=== PATIENT | female | born 1985 | race African-American/Black ===

== ENCOUNTER 2020-05-25 11:21 | Outpatient (CLI) | payer OTHER, SELFPAY ==
--- NOTE | ~2020-05-25 | US_ITS ---
EXAMINATION: US OB <=14 wk fetus w TV DATE: 05/25/2020 12:23 INDICATION: Hemorrhage in early . TECHNIQUE: Real-time transabdominal and transvaginal pelvic ultrasound was performed. COMPARISON: None. FINDINGS: TRANSABDOMINAL ULTRASOUND: The uterus measures 7.5 x 5.3 x 4.4 cm. TRANSVAGINAL ULTRASOUND: There is no visible intrauterine gestational sac. There is a 10 x 11 x 18 mm hypoechoic mass with small cystic areas in the endometrial complex. The right ovary measures 2.4 x 1 .3 x 1.4 cm. The left ovary measures 2.8 x 2.2 x 2.3 cm. There is no free fluid in the pelvis. IMPRESSION: 1. Mass in the endometrial complex, likely a hematoma. Lack of a visible intrauterine gestational sa c may be normal in early . Spontaneous and ectopic are not excluded. Seri al beta-hCGs are recommended. Reviewed, dictated and finalized at location A. [facility] IMPRESSION: 1. Mass in the endometrial complex, likely a hematoma. Lack of a visible intra uterine gestational sac may be normal in early . Spontaneous and ectopic are not excluded. Serial beta-hCGs are recommended.
== END 2020-05-25 11:22 | disposition home or self-care (01) ==
PROVIDERS: PCP Internal Medicine; Visit Provider Obstetrics & Gynecology
DX: N85.00 Endometrial hyperplasia, unspecified (principal)
CPT/HCPCS: 76801; 76817

== ENCOUNTER → 2020-12-23 15:14 | Outpatient (CLI) | payer OTHER, SELFPAY ==
--- NOTE | ~2020-12-23 | US_ITS ---
US OB <=14 wk fetus w TV DATE: 12/23/2020 15:58 INDICATION: viability determination and age assessment TECHNIQUE: Real-time imaging and Doppler analysis COMPARISON: None FINDINGS: The uterus measures 9.4 centers height, 4 cm anteroposterior and 5.3 cm transverse dimensio n. A normally shaped intrauterine gestational sac is noted with surrounding hyperechogenicity consistent with normal decidual reaction. Yolk sac is identified. Approximately 3.9 x 7 x 2.5 mm fluid collection is noted subjacent to the sacrum consistent with impl antation bleed or small subchorionic hematoma. The pole is not definitively localized. The ovaries and adnexal areas are unremarkable. No significant free fluid is identified. IMPRESSION: Small normally shaped intrauterine gestational sac suggesting very early intrauterine ges tation Follow-up ultrasound imaging in one to 2 weeks would be helpful for more definitive assessment of ges tational age and viability. Reviewed, dictated and finalized at [facility]. Reviewed, dictated and finalized at location A. IMPRESSION: Small normally shaped intrauterine gestational sac suggesting very early intrauterine gestation Follow-up ultrasound imaging in one to 2 weeks would be helpful for more defini tive assessment of gestational age and viability.
== END ==
PROVIDERS: Visit Provider Obstetrics & Gynecology
DX: Z36.9 Encounter for antenatal screening, unspecified (principal); Z3A.00 Weeks of gestation of pregnancy not specified
CPT/HCPCS: 76801; 76817

== ENCOUNTER 2020-12-23 15:15 | Outpatient (CLI) | payer OTHER, SELFPAY ==
--- NOTE | ~2020-12-23 | US_ITS ---
US renal BI DATE: 12/23/2020 16:19 INDICATION: Left flank pain, microscopic hematuria TECHNIQUE: Real-time imaging of the kidneys and urinary bladder COMPARISON: None FINDINGS: The kidneys measure approximately 10 cm length. No renal mass lesion or hydronephrosis is d etected. The urinary bladder is unremarkable. IMPRESSION: No significant abnormality Reviewed, dictated and finalized at [facility]. Reviewed, dictated and finalized at location A. IMPRESSION: No significant abnormality
== END 2020-12-23 15:16 ==
LOC: MICIMG 15:16
PROVIDERS: PCP Internal Medicine; Visit Provider Internal Medicine
DX: R31.21 Asymptomatic microscopic hematuria (principal)
CPT/HCPCS: 76775

== ENCOUNTER → 2021-01-01 09:50 | Outpatient (CLI) | payer OTHER, SELFPAY ==
--- NOTE | ~2021-01-01 | US_ITS ---
EXAMINATION: US OB <=14 wk fetus w TV DATE: 01/01/2021 10:36 INDICATION: Uncertain dates. viability. TECHNIQUE: Real-time transabdominal and transvaginal pelvic ultrasound was performed. COMPARISON: Ultrasound 12/23/2020 FINDINGS: TRANSABDOMINAL ULTRASOUND: The uterus measures 9.5 x 5.0 x 6.5 cm. TRANSVAGINAL ULTRASOUND: There is an intrauterine gestational sac. A yolk sac is identified. The fet al crown rump length measures 7 mm, which correlates with an estimated gestational age of 6 weeks and 4 day(s) (+/-) 4 day(s). heart motion is identified measuring 137 beats per minute (bpm) by M- mode Doppler. The ovaries are not visualized. There is trace free fluid in the pelvis. IMPRESSION: 1. Single living intrauterine gestation with estimated date of delivery of 08/23/2021. Reviewed, dictated and finalized at location A. IMPRESSION: 1. Single living intrauterine gestation with estimated date of delivery of 07/30.
== END ==
PROVIDERS: Visit Provider Obstetrics & Gynecology
DX: Z34.90 Encounter for supervision of normal pregnancy, unspecified, unspecified trimester (principal)
CPT/HCPCS: 76801; 76817

== ENCOUNTER 2021-01-13 12:59 | Outpatient (CLI) | payer OTHER, SELFPAY ==
--- NOTE | ~2021-01-13 | US_ITS ---
EXAMINATION: US OB <=14 wk fetus w TV EXAM DATE: 01/13/2021 13:45 INDICATION: O20.0 - Threatened . Vaginal bleeding and cramping. 1st trimester. TECHNIQUE: Pelvic obstetrical transabdominal sonogram was performed by a technologist. There are mu ltiple grayscale and Doppler images available for interpretation. Comparison is made to prior examina tion from 01/01/2021. FINDINGS: There is early live intrauterine gestation, 1.8 cm crown-rump length corresponding to estim ated gestational age 8 weeks 2 days, MJ 08/23/2021. heart rate was confirmed at 167 bpm. Yolk s ac was identified. No subchorionic hematoma demonstrated. Focal uterine region was measured at 3 cm, possible fibroid. IMPRESSION: 1. Early live intrauterine gestation, age by ultrasound 8 weeks 2 days. Reviewed, dictated and finalized at location B.
== END 2021-01-13 13:00 | disposition home or self-care (01) ==
LOC: ANHIMG 13:01
PROVIDERS: PCP Internal Medicine; Visit Provider Obstetrics & Gynecology
DX: O20.0 Threatened abortion (principal); Z3A.08 8 weeks gestation of pregnancy
CPT/HCPCS: 76801; 76817

== ENCOUNTER 2021-02-28 05:36 | Emergency (ER) | payer OTHER, SELFPAY ==
--- NOTE | ~2021-02-28 | US_ITS ---
EXAMINATION: US OB follow up DATE: 02/28/2021 07:28 INDICATION: Vaginal bleeding during TECHNIQUE: Real-time ultrasound of the pelvis was performed. The interpreting radiologist was not pre sent for the study. COMPARISON: 01/13/2021 FINDINGS: There is a single living fetus in breech presentation. The placenta is right posterior. heart rate is 155 beats per minute (bpm). The amniotic fluid volume appears subjectively normal. The following biometric data were obtained: BPD: 9.1 cm -> 15 weeks 0 days Head circumference: 2.8 cm -> 14 weeks 6 days Abdominal circumference: 11.2 cm -> 15 weeks 3 days Femur length: 1.9 cm -> 15 weeks 5 days These measurements are concordant. Head circumference to abdominal circumference ratio: 1.22 (normal range 1.05-1.38). Estimated weight: 126 g (+/-) 19 g or 4 oz. (+/-) 1 oz. IMPRESSION: 1. Single living fetus in breech presentation with heart rate of 155 bpm. 2. Estimated weight is 73rd percentile by Hadlock criteria when 08/22/2021 is used as the estima phillip date of delivery (MJ). Please correlate with clinical information or earlier ultrasounds for mos t accurate MJ. Reviewed, dictated and finalized at location A. IMPRESSION: 1. Single living fetus in breech presentation with heart rate of 155 bpm. 2. Estimated weight is 73rd percentile by Hadlock criteria when 08/22/2021 is used as the estimated date of delivery (MJ). Please correlate with clinica l information or earlier ultrasounds for most accurate MJ.
[2021-02-28 05:41] VITALS: BP 113/74; PULSE 72; RESP 18; TEMP 36.1; O2SAT 100
--- NOTE | 2021-02-28 06:01 | ED.FEMALEGU ---
HPI - Female Genitourinary General Chief complaint: OB/Uterine Contractions <Drake Solo MD - Last Filed: 03/02/21 11:24> Stated complaint: cramping, 15 weeks <Drake Solo MD - Last Filed: 03/02/21 11:24> Time Seen by Provider: 02/28/21 05:53 <Drake Solo MD - Last Filed: 03/02/21 11:24> History of Present Illness HPI Narrative: Patient is a 35-year-old female who is 15 weeks that presents ER with vaginal spotting. Began this morning. Reports she has had increased abdominal cramping over the last week. No loss of consciousness. No fevers or chills or sweats. She takes Lovenox due to antiphospholipid antibody. She is a . <Drake Solo MD - Last Filed: 03/02/21 11:24> Related Data Home medications: Home Medications Medication Instructions Recorded Confirmed docosahexaenoic acid 200 mg capsule mg PO 05/25/20 02/28/21 aspirin 81 mg tablet,delayed 81 mg PO BID tablet 02/16/21 02/28/21 release enoxaparin 40 mg/0.4 mL 40 mg SUBCUT DAILY 02/16/21 02/28/21 subcutaneous syringe <Drake Solo MD - Last Filed: 03/02/21 11:24> Allergies/Adverse reactions: Allergies Allergy/AdvReac Type Severity Reaction Status Date / Time Fish Containing Products Allergy Anaphylaxis Verified 02/28/21 11:13 rizatriptan Allergy chest pain Verified 02/28/21 11:13 sumatriptan Allergy chest pain Verified 02/28/21 11:13 <Drake Solo MD - Last Filed: 03/02/21 11:24> Review of Systems Review of Systems: All systems reviewed & are unremarkable except as noted in HPI and below <Drake Solo MD - Last Filed: 03/02/21 11:24> Gastrointestinal: Gastrointestinal: Reports abdominal pain, Denies diarrhea, Denies nausea and Denies vomiting <Drake Solo MD - Last Filed: 03/02/21 11:24> Genitourinary: Genitourinary: Reports abnormal vaginal bleeding, Denies nocturia, Denies dysuria and Denies vaginal discharge <Drake Solo MD - Last Filed: 03/02/21 11:24> Musculoskeletal: Musculoskeletal: Denies back pain and Denies muscle cramps <Drake Solo MD - Last Filed: 03/02/21 11:24> PMFSH Past Medical History Medical History: Medical History Acid reflux Anxiety Arthritis, rheumatic, acute or subacute Asthma Depression Elective x 3 HSV (herpes simplex virus) infection Interstitial cystitis Migraines Trigeminal neuralgia Vaginal delivery Vasculitis <Drake Solo MD - Last Filed: 03/02/21 11:24> Surgical History Surgical History: Surgical History History of cystoscopy History of dilation and curettage x 3 [place] teeth removed <Drake Solo MD - Last Filed: 03/02/21 11:24> Family History Family History: Family History Grandparent Diabetes mellitus Hypertension High cholesterol Cerebrovascular accident Mother Hypertension Father Hypertension Other Breast cancer <rDake Solo MD - Last Filed: 03/02/21 11:24> Social History Social History: Social History Smoking status: Never smoker Alcohol intake: current Drinks per week: 1 Substance use: never <Drake Solo MD - Last Filed: 03/02/21 11:24> Exam Narrative: GENERAL: Well-appearing, well-nourished, and in no acute distress. HEAD: Normocephalic, atraumatic. CHEST: Clear to auscultation. No respiratory distress. HEART: Regular rate and rhythm. Normal peripheral pulses. ABDOMEN: Soft, nontender, nondistended. : Normal external genitalia, scant dark blood within the vagina, cervix normal appearing and closed. No discharge. EXTREMITIES: Normal range of motion. No edema. SKIN: Warm, dry, no rash. NEURO: Alert and oriented x3. PSYCH: Normal mood and affect. <
--- NOTE | 2021-02-28 06:46 | PC.NURSE ---
Charge nurse in room attempting to draw blood.
--- NOTE | 2021-02-28 06:48 | PC.NURSE ---
Pt reports she is 15 weeks . . c/o vaginal bleeding - pink tinged tissue when wiping after urinating. also c/o pelvic cramping that began 1 week ago when pt started new job that includes more walking than previous job. a/o x 4. skin nwd. resps even/nonlabored. pelvic exam done by dr. mora with this RN as client success director. no swabs ordered/obtained. awaiting US.
[2021-02-28 07:40] LABS: Basophils Percent Auto 0.1 % (0.2-1.2); Eosinophils Absolute Auto 0.1 K/mm3 (0-0.3); Eosinophils Percent Auto 1.4 % (0-4.4); Hematocrit 34.8 % (37.0-47.0); Hemoglobin 10.9 g/dL (12.0-15.0); Immature Granulocyte Absolute 0.04 K/mm3 (0.00-0.031); Immature Granulocyte Percent A 0.4 % (0-0.5); Lymphocytes Absolute Auto 1.93 K/mm3 (0.9-3.2); Mean Corpuscular HGB Conc 31.3 g/dl (32-36); Mean Corpuscular Volume 86.1 fl (80-100); Mean Platelet Volume 9.9 fl (7.4-10.4); Monocytes Absolute Auto 0.7 K/mm3 (0.1-0.6); Monocytes Percent Auto 6.7 % (2.6-8.5); Neutrophils Absolute Auto 7.4 K/mm3 (1.3-6.7); Neutrophils Percent Auto 72.4 % (45.5-73.1); Platelet Count Result 435 k/mm3 (150-375); Red Blood Count 4.04 M/mm3 (4.2-5.4); Red Cell Distribution Width 14.6 % (11.5-14.5); White Blood Count 10.2 K/mm3 (4.5-10.0)
[2021-02-28 08:02] LABS: Alanine Aminotransferase 22 U/L (4-35); Albumin Level 3.6 g/dL (3.5-5.1); Alkaline Phosphatase 74 U/L (38-126); Anion Gap 9 mmol/L (8-16); Aspartate Amino Transferase 23 U/L (14-36); Bilirubin,Total 0.1 mg/dL (0.2-1.3); Blood Urea Nitrogen 9 mg/dL (7-17); Calcium 9.2 mg/dL (8.4-10.2); Carbon Dioxide 22 mmol/L (22-30); Chloride 106 mmol/L (98-107); Estimated CRCL calculation 155 ml/min; Estimated Glomerular Filt Rate > 60; Glucose 83 mg/dL (65-110); Potassium 4.1 mmol/L (3.4-5.0); Sodium 137 mmol/L (137-145)
[2021-02-28] MEDS: ACETAMINOPHEN 500 MG TABLET 1000 MG PO (08:21)
[2021-02-28 08:37] LABS: Add Urine Microscopic? YES; Appearance Urine Clear (Clear); Bilirubin Urine Negative (Negative); Blood Urine 1+ (Negative); Color Urine Yellow (Yellow); Glucose Urine UA Negative (Negative); Ketones Urine Negative (Negative); Leukocyte Esterase Ur Negative LEU/UL (Negative); Mucus Urine Rare /lpf; Nitrate Urine Negative (Negative); Protein Urine Negative (Negative); Specific Grav Ur 1.017 (1.001-1.035); Squamous Epithelial Cell Urine Rare /hpf (Few); Urobilinogen Urine Negative mg/dL (<2.0); WBC Urine 0-3 /hpf
[2021-02-28 09:15] VITALS: BP 115/83; PULSE 68; RESP 16; O2SAT 100
== END 2021-02-28 09:16 | disposition home or self-care (01) ==
PROVIDERS: Emergency Medicine; Emergency Provider Emergency Medicine; PCP Internal Medicine
DX: O26.892 Other specified pregnancy related conditions, second trimester (principal); R10.2 Pelvic and perineal pain; K21.9 Gastro-esophageal reflux disease without esophagitis; O99.612 Diseases of the digestive system complicating pregnancy, second trimester; O99.512 Diseases of the respiratory system complicating pregnancy, second trimester; J45.909 Unspecified asthma, uncomplicated; O99.891 Other specified diseases and conditions complicating pregnancy; M06.9 Rheumatoid arthritis, unspecified; O99.342 Other mental disorders complicating pregnancy, second trimester; F41.9 Anxiety disorder, unspecified; F32.A Depression, unspecified; Z3A.15 15 weeks gestation of pregnancy
CPT/HCPCS: 36415; 76816; 80053; 81001; 84702; 85025; 85461; 99284; A9270

== ENCOUNTER 2021-03-30 10:34 | Outpatient (RCR) | payer OTHER, SELFPAY | END 2021-06-13 12:04 | disposition home or self-care (01) | LOC: ANHDMC 10:34 | PROVIDERS: PCP Internal Medicine; Visit Provider Obstetrics & Gynecology | DX: K90.41 Non-celiac gluten sensitivity (principal) | CPT/HCPCS: 99199 ==